=== PATIENT | female | born 1955 | race African-American/Black ===

== ENCOUNTER 2016-06-25 12:15 | Emergency (ER) | payer BC, OTHER ==
[~2016-06-25] VITALS: Ht 160 cm; Wt 105.0 kg
[2016-06-25] MEDS ORDERED: KETOROLAC 60MG/2ML VIAL IM ONE (14:15)
[2016-06-25 14:33] VITALS: BP 151/107
== END 2016-06-25 15:57 | disposition home or self-care (01) ==
LOC: ER 12:15
DX: M54.2 Cervicalgia (principal); M54.10 Radiculopathy, site unspecified; Z87.891 Personal history of nicotine dependence
CPT/HCPCS: 72125; 96372; 99284; J1885

== ENCOUNTER 2018-06-19 05:39 | Emergency (ER) | payer BC, MEDICARE ==
[~2018-06-19] VITALS: Ht 170.2 cm; Wt 106.0 kg
[2018-06-19] MEDS ORDERED: ACETAMINOPHEN 500MG TABLET PO ONE (06:30)
[2018-06-19] MEDS ORDERED: LIDOCAINE HCL/EPINEPHRINE 1%-EPI 1:100,000 30 ML VIAL INFIL ONE (07:15)
[2018-06-19] MEDS ORDERED: OXYCODONE HCL 5MG TABLET PO ONE (07:30)
[2018-06-19] MEDS ORDERED: LIDOCAINE HCL/EPINEPHRINE 1%-EPI 1:100,000 20 ML VIAL ONE (07:38)
[2018-06-19 09:18] VITALS: BP 126/69
== END 2018-06-19 10:16 | disposition home or self-care (01) ==
LOC: ER 05:39
DX: S82.832A Other fracture of upper and lower end of left fibula, initial encounter for closed fracture (principal); S82.62XA Displaced fracture of lateral malleolus of left fibula, initial encounter for closed fracture; S93.05XA Dislocation of left ankle joint, initial encounter; F17.200 Nicotine dependence, unspecified, uncomplicated; Z90.710 Acquired absence of both cervix and uterus; W01.0XXA Fall on same level from slipping, tripping and stumbling without subsequent striking against object, initial encounter; Y93.89 Activity, other specified; Y92.89 Other specified places as the place of occurrence of the external cause; Y99.8 Other external cause status
CPT/HCPCS: 27788; 29515; 73610; 99284; J3490; 27840